=== PATIENT | male | born 2000 | race Caucasian/White ===

== ENCOUNTER 2023-09-28 15:38 | Emergency (ER) | payer SELFPAY ==
[~2023-09-28] VITALS: Ht 172.7 cm; Wt 56.7 kg
[2023-09-28 16:01] VITALS: O2SAT 100
[2023-09-28] MEDS: DIAZEPAM 5 MG TABLET PO ONE (18:05)
[2023-09-28] MEDS ORDERED: IBUP-2029 MT (19:03)
[2023-09-28 19:52] VITALS: BP 118/84; PULSE 77; RESP 18; TEMP 98.5
== END 2023-09-28 19:55 | disposition home or self-care (01) ==
LOC: ER 15:38
DX: S43.015A Anterior dislocation of left humerus, initial encounter (principal); X58.XXXA Exposure to other specified factors, initial encounter; Y93.89 Activity, other specified; Y92.89 Other specified places as the place of occurrence of the external cause; Y99.8 Other external cause status
CPT/HCPCS: 23650; 73030; 99284; A4565